=== PATIENT | female | born 1985 | race African-American/Black ===

== ENCOUNTER 2022-10-09 21:45 | Emergency (ER) | payer MEDICARE, MEDICAID, SELFPAY ==
--- NOTE | ~2022-10-09 | XR_ITS ---
EXAMINATION: XR ABDOMEN KUB CLINICAL INDICATION: Abdominal pain COMPARISON: None available. TECHNIQUE: 2 views of the abdomen. FINDINGS: The bowel gas pattern is normal with no evidence of ileus or obstruction. Stool present throughout the colon, without colonic dilatation. No unusual soft tissue calcifications are noted. The bones are unremarkable. XR/XR KUB IMPRESSION: * Mild/moderate constipation. * No evidence of obstruction.
[2022-10-09 21:47] VITALS: BP 124/68; PULSE 93; RESP 20; TEMP 36.8; O2SAT 99; BMI 25.0
[2022-10-09 22:03] LABS: MANUAL DIFF FLAG NO
[2022-10-09 22:06] LABS: Basophils Percent Auto 0.1 % (0-2); Eosinophils Absolute Auto 0.3 X10*3/uL (0.0-0.4); Eosinophils Percent Auto 3.7 % (0-4); Hematocrit 36.3 % (37.0-47.0); Imm Gran Abs Auto 0.01 X10*3/uL (0.00-0.03); Imm Gran Pct Auto 0.1 % (0.0-0.4); Lymphocytes Absolute Auto 2.3 X10*3/uL (1.2-4.9); Lymphocytes Percent Auto 26.5 % (20-40); Mean Corpuscular HGB Conc 35.8 g/dl (31.0-35.0); Mean Corpuscular Hemoglobin 28.6 pg (27.0-33.0); Mean Corpuscular Volume 79.8 fL (80.0-98.0); Mean Platelet Volume 10.2 fL (9.4-12.3); Monocytes Absolute Auto 1.3 X10*3/uL (0.1-1.2); Neutrophils Absolute Auto 4.7 x10*3/uL (2.0-8.3); Neutrophils Percent Auto 54.6 % (45-73); Platelet Count 346 X10*3/uL (160-400); Red Blood Count 4.55 X10*6/uL (4.20-5.50); Red Cell Distribution Width 12.8 % (11.0-16.0); White Blood Count 8.7 X10*3/uL (4.8-10.8)
[2022-10-09 22:21] LABS: Alanine Aminotransferase 9 U/L (0-31); Alkaline Phosphatase 88 U/L (39-117); Anion Gap 12 (12-20); Aspartate Amino Transferase 22 U/L (5-31); Bilirubin Direct 0.2 mg/dL (0.0-0.5); Bilirubin Total 0.8 mg/dL (0.0-1.0); Blood Urea Nitrogen 11 mg/dL (9-16); Calcium 8.6 mg/dL (8.4-10.2); Carbon Dioxide 27 mmol/L (22-29); Chloride 104 mmol/L (96-108); Creatinine Clr Calc Pharmacy 89.9; Estimated Glomerular Filt Rate > 60; Glucose Random 91 mg/dL (60-115); Lipase 25 U/L (8-78); Sodium 139 mmol/L (135-145); Total Protein 6.3 g/dL (6.5-8.0)
[2022-10-10 00:15] LABS: HCG Quantitative < 2 mIU/mL
[2022-10-10 00:33] LABS: C Reactive Protein 6.16 mg/dL (< or = 0.50)
[2022-10-10 00:42] LABS: Appearance Urine Clear; Color Urine Yellow; Glucose Urine UA Negative (Negative); Leukocyte Esterase Urine Negative (Negative); Nitrite Urine Negative (Negative); PH 5.5 (5.0-9.0); Specific Gravity - Urine 1.015 (1.005-1.025); Urine Blood Negative (Negative); Urine Ketones Trace mg/dL (Negative); Urine Protein Negative (Neg-Trace)
[2022-10-10 00:52] LABS: Erythrocyte Sedimentation Rate 3 MM/HR (0-20)
--- NOTE | 2022-10-10 00:53 | ED.ABDPAIN ---
HPI - Abdominal Pain General Chief Complaint: Abdominal Pain Stated Complaint: severe abd. pain, vomiting w/ blood, diarrhea Time Seen by Provider: 10/09/22 23:22 Source: patient Mode of arrival: ambulatory History of Present Illness HPI narrative: 37-year-old female presents with significant abdominal pain that has been going on for years, on and off. Patient has been seen several times at [facility] for the same symptoms and states that the episode of pain is more severe, constant has gone on for about 3 days this current event. Related Data Allergies Allergy/AdvReac Type Severity Reaction Status Date / Time amoxicillin Allergy Hives Verified 10/09/22 21:52 cephalexin [From Keflex] Allergy Hives Verified 10/09/22 21:52 metronidazole [From Flagyl] Allergy Hives Verified 10/09/22 21:52 Review of Systems Review of Systems Pertinent positives and negatives as stated in HPI PMFSH Past Medical History Source: nursing notes reviewed Social History Social History Alcohol intake: never Smoked in Last 30 Days: No Use of substances other than those prescribed or required for medical reasons: No Advance Directives: No Advance Directives Information Provided: Yes Patient : No Physical Exam ED Vital Signs: Vital Signs - 24 hr 10/09/22 21:47 Temperature 98.3 F Pulse Rate 93 Respiratory Rate 20 Blood Pressure 124/68 Pulse Oximetry 99 Oxygen Delivery Method Room Air BMI result Body Mass Index 25.0 VITAL SIGNS: Reviewed. GENERAL: Well developed, well nourished, in no acute distress. HEAD: Normocephalic/atraumatic EYES: PERRLA, EOMI EARS: Ext canals without abnormality OROPHARYNX: no oral lesions noted, posterior pharynx clear LUNGS: Normal breath sounds. No adventitious sounds or accessory muscle use. SpO2<99> CARDIOVASCULAR: Regular rate and rhythm without noted murmurs ABDOMEN: Soft, non-tender, non-distended with bowel sounds. MUSCULOSKELETAL: No tenderness, deformities, or effusions noted on gross inspection. EXTREMITIES: No cyanosis, clubbing or edema. SKIN: Inspection of the skin reveals no rashes, ulcerations, jaundice, pallor, or petechiae. NEUROLOGIC: Alert and oriented x 4. Strength and sensation to light touch were grossly intact x 4. Medical Decision Making Medical Decision Making MDM Narrative: 37-year-old female with history and clinical presentation of intermittent significant abdominal discomfort this been going on for years, she denies any follow-up with Gastroenterology and has been evaluated several times at [facility] and I will not be repeating CT scans at this time but will proceed with KUB as review of all other laboratory investigations appear to be chronically stable with the exception that the CRP is elevated with a normal ESR. Will provide patient with Bentyl as well as a Gastroenterology referral. I discussed all results with the patient at bedside to include the fact that significant amount of constipation was noted on her abdominal x-ray. She is otherwise discharged home in stable condition. Differential Diagnosis Please see the discussion above Lab Data Please see the discussion above 10/09/22 21:59 10/09/22 21:59 Labs: Lab Results 10/09/22 10/09/22 10/09/22 Range/Units 21:59 21:59 21:59 WBC 8.7 (4.8-10.8) X10*3/uL RBC 4.55 (4.20-5.50) X10*6/uL Hgb 13.0 (12.0-16.0) g/dl Hct 36.3 L (37.0-47.0) % MCV 79.8 L (80.0-98.0) fL MCH 28.6 (27.0-33.0) pg MCHC 35.8 H (31.0-35.0) g/dl RDW 12.8 (11.0-16.0) % Plt Count 346 (160-400) X10*3/uL MPV 10.2 (9.4-12.3) fL Immature Gran % (Auto) 0.1 (0.0-0.4) % Neut % (Auto) 54.6 (45-73) % Lymph % (Auto) 26.5 (20-40) % [place] % (Auto) 15.0 H (2-11) % Eos % (Auto) 3.7 (0-4) % Baso % (Auto) 0.1 (0-2) % Lymph # (Auto) 2.3 (1.2-4.9) X10*3/uL [place] # (Auto) 1.3 H (0.1-1.2) X10*3/uL Eos # (Auto) 0.3 (0.0-0.4) X10*3/uL Baso # (Auto) 0.0 (0.0-0.2) X10*3/uL Abs Immat Gran (auto) 0.01 (0.00-0.03) X10*3/uL Absolute Neuts (auto) 4.7 (2.0-8.3) x10*3/uL Absolute Nucleated RBC 0.000 (0.0-0.012) X10*3/uL Nucleated RBC % (auto) 0.0 (0.0-0.2) /100WBC ESR 3 (0-20) MM/HR Sodium 139 (135-145) mmol/L Potassium 4.0 (3.3-5.1) mmol/L Chloride 104 (96-108) mmol/L Carbon Dioxide 27 (22-29) mmol/L Anion Gap 12 (12-20) BUN 11 (9-16) mg/dL Creatinine 0.77 (0.5-1.4) mg/dL Estim Creat Clear Calc 89.9 Estimated GFR > 60 Random Glucose 91 (60-115) mg/dL Calcium 8.6 (8.4-10.2) mg/dL Total Bilirubin 0.8 (0.0-1.0) mg/dL Direct Bilirubin 0.2 (0.0-0.5) mg/dL AST 22 (5-31) U/L ALT 9 (0-31) U/L Alkaline Phosphatase 88 (39-117) U/L C-Reactive Protein 6.16 H (< or = 0.50) mg/dL Total Protein 6.3 L (6.5-8.0) g/dL Albumin 4.0 (3.5-5.0) g/dL Lipase 25 (8-78) U/L Beta HCG, Quant < 2 mIU/mL Urine Color Urine Appearance Urine pH (5.0-9.0) Ur Specific [place] (1.005-1.025) Urine Protein (Neg-Trace) mg/dL Urine Glucose (UA) (Negative) mg/dL Urine Ketones (Negative) mg/dL Urine Blood (Negative) Urine Nitrite (Negative) Ur Leukocyte Esterase (Negative) 10/10/22 Range/Units 00:35 WBC (4.8-10.8) X10*3/uL RBC (4.20-5.50) X10*6/uL Hgb (12.0-16.0) g/dl Hct (37.0-47.0) % MCV (80.0-98.0) fL MCH (27.0-33.0) pg MCHC (31.0-35.0) g/dl RDW (11.0-16.0) % Plt Count (160-400) X10*3/uL MPV (9.4-12.3) fL Immature Gran % (Auto) (0.0-0.4) % Neut % (Auto) (45-73) % Lymph % (Auto) (20-40) % [place] % (Auto) (2-11) % Eos % (Auto) (0-4) % Baso % (Auto) (0-2) % Lymph # (Auto) (1.2-4.9) X10*3/uL [place] # (Auto) (0.1-1.2) X10*3/uL Eos # (Auto) (0.0-0.4) X10*3/uL Baso # (Auto) (0.0-0.2) X10*3/uL Abs Immat Gran (auto) (0.00-0.03) X10*3/uL Absolute Neuts (auto) (2.0-8.3) x10*3/uL Absolute Nucleated RBC (0.0-0.012) X10*3/uL Nucleated RBC % (auto) (0.0-0.2) /100WBC ESR (0-20) MM/HR Sodium (135-145) mmol/L Potassium (3.3-5.1) mmol/L Chloride (96-108) mmol/L Carbon Dioxide (22-29) mmol/L Anion Gap (12-20) BUN (9-16) mg/dL Creatinine (0.5-1.4) mg/dL Estim Creat Clear Calc Estimated GFR Random Glucose (60-115) mg/dL Calcium (8.4-10.2) mg/dL Total Bilirubin (0.0-1.0) mg/dL Direct Bilirubin (0.0-0.5) mg/dL AST (5-31) U/L ALT (0-31) U/L Alkaline Phosphatase (39-117) U/L C-Reactive Protein (< or = 0.50) mg/dL Total Protein (6.5-8.0) g/dL Albumin (3.5-5.0) g/dL Lipase (8-78) U/L Beta HCG, Quant mIU/mL Urine Color Yellow Urine Appearance Clear Urine pH 5.5 (5.0-9.0) Ur Specific [place] 1.015 (1.005-1.025) Urine Protein Negative (Neg-Trace) mg/dL Urine Glucose (UA) Negative (Negative) mg/dL Urine Ketones Trace (Negative) mg/dL Urine Blood Negative (Negative) Urine Nitrite Negative (Negative) Ur Leukocyte Esterase Negative (Negative) Radiology Impression Radiologist Impression: My interpretation is in agreement with radiology's impression of the imaging studies. Medications Administered Discontinued Medications Generic Name Dose Route Start Last Admin Trade Name Freq PRN Reason Stop Dose Admin Al Hydroxide/Mg Hydroxide 30 ml 10/10/22 01:04 10/10/22 01:22 Magnesium Hydrox/Alum Hydrox 30 Ml Oral.Susp PO 10/10/22 01:05 30 ml ONCE ONE Administration Dicyclomine HCl 10 mg 10/10/22 01:04 10/10/22 01:19 Dicyclomine Hcl 10 Mg Capsule PO 10/10/22 01:05 10 mg ONCE ONE Administration Lidocaine HCl 10 ml 10/10/22 01:04 10/10/22 01:21 Lidocaine Hcl Viscous 2 % 15 Ml Solution MUCOUS MEM 10/10/22 01:05 10 ml ONCE ONE Administration Discharge Plan Discharge Clinical Impression: Abdominal pain, Constipation Patient Disposition: Home, Self-Care Instructions: Constipation (ED), High Fiber Diet (ED), Abdominal Pain (ED), Fleet Enema (ED) Additional Instructions: 1. Resume all home medications as prescribed. 2. I recommend increasing amount of water intake and utilize [id number] Tylenol/ibuprofen as needed for pain control to include heating pad for additional symptom relief. 3. You have stated that you have Bentyl and MiraLax at home, I recommend starting the MiraLax daily to help with your constipation. 4. I have provided you with a referral to follow-up with gastroenterology below. 5. Please follow-up with your primary care provider as you have scheduled. Return to the ER for any worsening symptoms. Referrals: Irena Kimball MD [Physician] - (37F with intermittent abd pain, CRP is elevated , no fevers, CT/US/XR from [facility] without acute findings) Interventions: ED Discharge Assessment Last Done: 10/10/22 02:21 Discharge Date/Time: 10/10/22 02:30
--- NOTE | 2022-10-10 00:59 | PC.NURSE ---
Pt A&Ox4, reports 8/10 intermittent wave, sharp, stabbing, burning up inside pain . Reports last BM was yesterday normal for self but had one episode of diarrhea, reports pain depends on position with nausea. + bowel sounds x 4, ABD slightly tender to LUQ. Pt ambulatory with steady gait to BR. Urine sample collected and sent to lab.
[2022-10-10] MEDS: Dicyclomine HCl 10 MG CAPSULE PO (01:19)
[2022-10-10] MEDS: Lidocaine HCl Viscous 2 % 15 ML SOLUTION 10 ML MUCOUS MEM (01:21)
[2022-10-10] MEDS: Magnesium Hydrox/Alum Hydrox 30 ML ORAL.SUSP PO (01:22)
== END 2022-10-10 02:30 | disposition home or self-care (01) ==
PROVIDERS: Emergency Provider Student in an Organized Health Care Education/Training Program
DX: K59.00 Constipation, unspecified (principal); R10.32 Left lower quadrant pain
CPT/HCPCS: 36415; 74018; 80048; 80076; 81003; 83690; 84702; 85025; 85652; 86140; 99283; 99284

== ENCOUNTER 2025-05-31 00:48 | Emergency (ER) | payer MEDICARE, SELFPAY ==
--- NOTE | ~2025-05-31 | CT_ITS ---
CLINICAL HISTORY: seizure like activity CT head without contrast Comparison: None provided Findings: There is no acute intracranial hemorrhage. Ventricles are of normal size and shape. No mass effect or midline shift is present. The vasquez-white matter differentiation appears normal. The visualized portions of the orbits, paranasal sinuses, and mastoids are unremarkable. No fractures are identified. IMPRESSION: Normal noncontrast head CT. This document has been electronically signed by: Javi Gordon MD on 05/31/2025 02:59:36
--- NOTE | ~2025-05-31 | CT_ITS ---
CLINICAL HISTORY: abdominal pain CT abdomen and pelvis with contrast Comparison: CR/SR - XR ABDOMEN 1 VIEW (KUB) - 10/10/22 01:19 EDT Findings: The lung bases are clear. The liver, gallbladder, pancreas, adrenal glands, and kidneys are unremarkable. There is borderline splenomegaly. The appendix is normal. The remainder of the gastrointestinal tract is unremarkable. There is trace free fluid in the cul-de-sac. The uterus and adnexa are unremarkable. The bladder is unremarkable. There are no enlarged lymph nodes. The aorta and IVC are normal. There is a mildly expansile lytic lesion within the right 8th rib which was present on the prior abdominal radiograph consistent with benignity. There is no acute fracture or suspicious lytic or sclerotic lesion. There is mild to moderate L1-2 degenerative disc disease. IMPRESSION: No acute abnormality in the abdomen or pelvis. This document has been electronically signed by: Javi Gordon MD on 05/31/2025 02:59:31
[2025-05-31 00:50] VITALS: BP 135/77; PULSE 86; RESP 16; TEMP 37.7; O2SAT 100; BMI 24.8
[2025-05-31 00:54] LABS: Glucose, Whole Blood 102 mg/dL (60-115)
--- NOTE | 2025-05-31 00:55 | ECG_ITS ---
Test Reason : AMS Blood Pressure : */* mmHG Vent. Rate : 64 BPM Atrial Rate : 64 BPM P-R Int : 158 ms QRS Dur : 104 ms QT Int : 376 ms P-R-T Axes : 61 96 54 degrees QTcB Int : 387 ms Normal sinus rhythm with sinus arrhythmia Rightward axis Incomplete right bundle branch block Borderline ECG No previous ECGs available Referred By: Nisha Fernando Electronically Signed By: Prasanna Negron
[2025-05-31] MEDS: Lactated Ringers 1,000 ML 999 ML IV (01:01)
[2025-05-31 01:05] LABS: Hematocrit 36.5 % (37.0-47.0); Hemoglobin 13.1 g/dl (12.0-16.0); Imm Gran Abs Auto 0.01 X10*3/uL (0.00-0.03); Imm Gran Pct Auto 0.1 % (0.0-0.4); Lymphocytes Absolute Auto 1.0 X10*3/uL (1.2-4.9); MANUAL DIFF FLAG NO; Mean Corpuscular HGB Conc 35.9 g/dl (31.0-35.0); Mean Corpuscular Hemoglobin 28.6 pg (27.0-33.0); Mean Corpuscular Volume 79.7 fL (80.0-98.0); NRBC Abs Auto 0.000 X10*3/uL (0.0-0.012); NRBC Pct Auto 0.0 /100WBC (0.0-0.2); Platelet Count 267 X10*3/uL (160-400); Red Blood Count 4.58 X10*6/uL (4.20-5.50); White Blood Count 8.4 X10*3/uL (4.8-10.8)
--- NOTE | 2025-05-31 01:06 | ED.GENADULT ---
HPI - General Adult General Chief complaint: General Medical Stated complaint: vomiting Time Seen by Provider: 05/31/25 00:49 Source: patient Mode of arrival: ambulatory Limitations: no limitations History of Present Illness ED Provider: Dr. Fernando [facility] narrative: 40-year-old female presented hospital today for evaluation of seizure-like activity. Patient stated that she had multiple seizures. She has no history of seizures in the past. Patient stated that she see lights flashing in her bodies. Patient feels liquid dripping down her chest and anterior abdomen. She feels light shining behind her eyes. Patient stated that she is passing in and out of consciousness. Patient appears to be extremely restless. Unable to provide any other meaningful history at this time. I did discuss with patient's mother. Who stated that she has been a strange with the patient she is unsure of exactly what is going on as well. Related Data Allergies Allergy/AdvReac Type Severity Reaction Status Date / Time amoxicillin (AMOXICILLIN) Allergy Intermediate RASH Verified 05/31/25 00:54 cephalexin (From Keflex) Allergy Hives Verified 05/31/25 00:54 metronidazole (From Flagyl) Allergy Hives Verified 05/31/25 00:54 From KEFLEX Allergy Intermediate RASH Uncoded 05/31/25 00:54 Review of Systems Review of Systems: Pertinent review of systems as mentioned in HPI. All other system otherwise negative. [facility] Past Medical History [facility] Narrative: None Social History Social History (System 04/27/23 @ 16:23 by Otilia Perea) Alcohol intake: never Advance Directives: No Advance Directives Information Provided: Yes Physical Exam ED Exam Exam: General: Appears extremely anxious, pale Head: Normacephalic, atraumatic ENT: oral mucosa dry, neck supple, no tracheal deviation Cardiovascular: regular rate, regular rhythm, no murmurs, rubbing, gallops Respiratory: CTAB, no wheeze, rales, rhonchi Gastrointestinal: Soft, diffuse abdominal tenderness Neurological: Awake and alert, no facial droop noted, sensation intact moving all 4 extremity, pupils PERRLA, EOMI no focal neurological deficit Skin: Warm and dry Psychiatric: Appropriate mood and thoughts Vital Signs: Vital Signs - 24 hr 05/31/25 00:50 05/31/25 03:01 Temperature 99.9 F Pulse Rate 86 74 Respiratory Rate 16 18 Blood Pressure 135/77 124/75 Pulse Oximetry 100 98 Oxygen Delivery Method Room Air Room Air BMI result Body Mass Index 24.8 Medications Administered Discontinued Medications Generic Name Dose Route Start Last Admin Trade Name Juliocesar PRN Reason Stop Dose Admin Diazepam 5 mg 05/31/25 02:49 05/31/25 02:55 Diazepam 10 Mg/2 Ml Cartridge IVPUSH 05/31/25 02:50 5 mg STAT STA Administration Haloperidol Lactate 5 mg 05/31/25 01:19 05/31/25 01:27 Haloperidol Lactate 5 Mg/Ml Vial IM 05/31/25 01:20 Not Given ONCE ONE Lactated Ringer's 1,000 mls @ 999 mls/hr 05/31/25 01:00 05/31/25 02:20 Lr IV 05/31/25 02:00 Infused .Q1H1M BURTON Infusion Iohexol 85 ml 05/31/25 02:20 05/31/25 02:21 Iohexol 350 Mg/Ml 100 Ml Infus..Btl IV 05/31/25 02:21 85 ml ONCE ONE Administration Metoclopramide HCl 5 mg 05/31/25 01:19 05/31/25 01:27 Metoclopramide Hcl 10 Mg/2 Ml Vial IV 05/31/25 01:20 Not Given ONCE ONE Ondansetron HCl 4 mg 05/31/25 00:49 05/31/25 01:01 Ondansetron Hcl 4 Mg/2 Ml Vial IVPUSH 05/31/25 00:50 4 mg ONCE ONE Administration Medical Decision Making Medical Decision Making MDM Narrative: 40-year-old female presented hospital today for seizure-like activities and multitude of symptoms. On examination the patient appears to be extremely anxious. She is able to move all 4 extremities. Sensation does appear to be intact on exam. Visual acuity appears to be intact. Patient does appear to have pilorection on forearms. She does appear to be pale. IV fluid be initiated. IV Zofran will be given to the patient. I did offer giving her some IM Haldol for her anxiety and nausea. Patient is refusing. Patient stated that she knows this is antipsychotic. She states she is not crazy. I did explain to her this is more for her nausea and her anxiety at this time. Patient is adamantly refusing this is medicine at this time. We will hold off at this time. Screening lab work will be obtained for the patient including lactic acid to see if there is signs of epileptic seizure. UA will be obtained to assess for any signs of UTI pyelonephritis. We will also plan to obtain a CT head CT abdomen and pelvis. Patient is tender to in her abdomen. Patient is not tachycardic not febrile blood pressure is stable at this time. Patient will be signed out to oncoming provider pending her lab work and CT imaging. I received sign-out from my colleague Dr. 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 Patient denies history of anxiety depression although she has been crying the whole time and had a panic attack Patient isn't SI or HI, section 12 is not indicated at this time. Patient declined Care team consult to help with the anxiety. Patient requesting to be discharged, patient's mother is here to pick her up Differential Diagnosis Differential Diagnoses: The differential diagnosis associated with the presentation includes Anxiety, panic attack, pyelonephritis, dehydration, seizure-like activity, nonepileptic seizure Lab Data MDM Lab Attestation statement: I reviewed the patient's lab results. 05/31/25 00:58 05/31/25 00:58 Labs: Lab Results 05/31/25 05/31/25 05/31/25 Range/Units 00:50 00:58 00:59 WBC 8.4 (4.8-10.8) X10*3/uL RBC 4.58 (4.20-5.50) X10*6/uL Hgb 13.1 (12.0-16.0) g/dl Hct 36.5 L (37.0-47.0) % MCV 79.7 L (80.0-98.0) fL MCH 28.6 (27.0-33.0) pg MCHC 35.9 H (31.0-35.0) g/dl RDW 13.1 (11.0-16.0) % Plt Count 267 (160-400) X10*3/uL MPV 10.6 (9.4-12.3) fL Immature Gran % (Auto) 0.1 (0.0-0.4) % Neut % (Auto) 77.5 H (45-73) % Lymph % (Auto) 11.6 L (20-40) % [place] % (Auto) 10.0 (2-11) % Eos % (Auto) 0.2 (0-4) % Baso % (Auto) 0.6 (0-2) % Lymph # (Auto) 1.0 L (1.2-4.9) X10*3/uL [place] # (Auto) 0.8 (0.1-1.2) X10*3/uL Eos # (Auto) 0.0 (0.0-0.4) X10*3/uL Baso # (Auto) 0.1 (0.0-0.2) X10*3/uL Abs Immat Gran (auto) 0.01 (0.00-0.03) X10*3/uL Absolute Neuts (auto) 6.5 (2.0-8.3) x10*3/uL Absolute Nucleated RBC 0.000 (0.0-0.012) X10*3/uL Nucleated RBC % (auto) 0.0 (0.0-0.2) /100WBC Sodium 137 (135-145) mmol/L Potassium 3.3 (3.3-5.1) mmol/L Chloride 104 (96-108) mmol/L Carbon Dioxide 22 (22-29) mmol/L Anion Gap 14 (12-20) BUN 9 (9-16) mg/dL Creatinine 0.83 (0.5-1.4) mg/dL Estim Creat Clear Calc 84.3 Estimated GFR > 60 POC Glucose 102 (60-115) mg/dL Random Glucose 105 (60-115) mg/dL Lactic Acid 1.3 (0.5-2.0) mmol/L Calcium 9.1 (8.4-10.2) mg/dL Magnesium 2.0 (1.6-2.6) mg/dL Total Bilirubin 0.3 (0.0-1.0) mg/dL AST 38 H (5-31) U/L ALT 15 (0-31) U/L Alkaline Phosphatase 91 (39-117) U/L Total Creatine Kinase 57 (26-140) U/L Total Protein 7.4 (6.5-8.0) g/dL Albumin 4.4 (3.5-5.0) g/dL Lipase 12 (8-78) U/L Salicylates (15-30) mg/dL Acetaminophen (<30) mcg/mL Ethyl Alcohol < 10 mg/dL 05/31/25 Range/Units 01:19 WBC (4.8-10.8) X10*3/uL RBC (4.20-5.50) X10*6/uL Hgb (12.0-16.0) g/dl Hct (37.0-47.0) % MCV (80.0-98.0) fL MCH (27.0-33.0) pg MCHC (31.0-35.0) g/dl RDW (11.0-16.0) % Plt Count (160-400) X10*3/uL MPV (9.4-12.3) fL Immature Gran % (Auto) (0.0-0.4) % Neut % (Auto) (45-73) % Lymph % (Auto) (20-40) % [place] % (Auto) (2-11) % Eos % (Auto) (0-4) % Baso % (Auto) (0-2) % Lymph # (Auto) (1.2-4.9) X10*3/uL [place] # (Auto) (0.1-1.2) X10*3/uL Eos # (Auto) (0.0-0.4) X10*3/uL Baso # (Auto) (0.0-0.2) X10*3/uL Abs Immat Gran (auto) (0.00-0.03) X10*3/uL Absolute Neuts (auto) (2.0-8.3) x10*3/uL Absolute Nucleated RBC (0.0-0.012) X10*3/uL Nucleated RBC % (auto) (0.0-0.2) /100WBC Sodium (135-145) mmol/L Potassium (3.3-5.1) mmol/L Chloride (96-108) mmol/L Carbon Dioxide (22-29) mmol/L Anion Gap (12-20) BUN (9-16) mg/dL Creatinine (0.5-1.4) mg/dL Estim Creat Clear Calc Estimated GFR POC Glucose (60-115) mg/dL Random Glucose (60-115) mg/dL Lactic Acid (0.5-2.0) mmol/L Calcium (8.4-10.2) mg/dL Magnesium (1.6-2.6) mg/dL Total Bilirubin (0.0-1.0) mg/dL AST (5-31) U/L ALT (0-31) U/L Alkaline Phosphatase (39-117) U/L Total Creatine Kinase (26-140) U/L Total Protein (6.5-8.0) g/dL Albumin (3.5-5.0) g/dL Lipase (8-78) U/L Salicylates < 5.0 L (15-30) mg/dL Acetaminophen 5 (<30) mcg/mL Ethyl Alcohol mg/dL Critical Care Time Critical Care Time Critical Care Time: Yes Total Critical Care Time: 45 Attestation: I have personally provided critical care time. Time includes review of lab data, radiology results, discussion with consultants, and monitoring for potential decompensation. Intervention performed as documented. Discharge Plan Discharge Clinical Impression: Nausea & vomiting, Psychogenic nonepileptic seizure Patient Disposition: Home, Self-Care Instructions: Nonepileptic Seizures (ED), Acute Nausea and Vomiting (ED) Additional Instructions: Please follow-up with your primary care physician tomorrow. If you have any worsening or new symptoms, please return to the emergency room or call 911 Print Language: Estonian
--- NOTE | 2025-05-31 01:27 | PC.NURSE ---
pt declined medications. zofran and LR administered.
[2025-05-31 01:28] LABS: Alanine Aminotransferase 15 U/L (0-31); Albumin Level 4.4 g/dL (3.5-5.0); Alkaline Phosphatase 91 U/L (39-117); Anion Gap 14 (12-20); Aspartate Amino Transferase 38 U/L (5-31); Blood Urea Nitrogen 9 mg/dL (9-16); Calcium 9.1 mg/dL (8.4-10.2); Carbon Dioxide 22 mmol/L (22-29); Chloride 104 mmol/L (96-108); Creatinine Clr Calc Pharmacy 84.3; Estimated Glomerular Filt Rate > 60; Lipase 12 U/L (8-78); Magnesium 2.0 mg/dL (1.6-2.6); Potassium 3.3 mmol/L (3.3-5.1); Sodium 137 mmol/L (135-145); Total Protein 7.4 g/dL (6.5-8.0)
--- OUTSIDE RECORDS SUMMARY | 2025-05-31 01:41 | XMS_ITS | Clinical Summary ---
Author Organization [facility] Address [address] [place] [id number] Phone Care Team Providers Care Engineering Project Manager Name Role Phone Mariela Jacobs MD Primary Care Pr ovider Allergies Active Allergy Reactions Criticality Noted Date Comments Amoxicillin Rash Low 02/10/2023 Amoxicillin-Pot Clavulanate Rash,Pain Low 02/11/20 23 Stomach Pain Cephalexin Rash,Pain Low 02/10/2023 Stomach pain and cramps Medications pantoprazole (PROTONIX) 40 MG tablet Take 1 tablet by mouth 2 (two) times a day. 12/31/2022 Active butalbital-aceta minophen-caffein e (FIORICET, ESGIC) 50-325-40 mg per tablet Take 1 tablet by mouth every 4 (four) hours as needed. 02/06/2023 Active MAGNESIUM ORAL Take 400 mg by mouth daily. Active norethindrone (MICRONOR) 0.35 mg tablet Take 1 tablet by mouth daily. Active clonazePAM (KLONOPIN) 0.5 MG tablet Take 0.5 mg by mouth as needed. Active pregabalin (LYRICA) 100 MG capsule Take 100 mg by mouth 3 (three) times a day. Active traMADoL (ULTRAM) 50 mg tablet Take 50 mg by mouth 2 (two) times a day as needed. Active dicyclomine (BENTYL) 10 MG capsule Take 10 mg by mouth 4 (four) times a day before meals and nightly. Active ondansetron (ZOFRAN) 4 MG tablet Take 4 mg by mouth every 12 (twelve) hours as needed. 01/29/2023 Active butalbital-aceta minophen-caffein e (FIORICET, ESGIC) 50-325-40 mg per tablet Take 1 tablet by mouth every 4 (four) hours as needed. 11/05/2021 Active Active Problems Problem Noted Date Diagnosed Date Fibromyalgia 04/16/2023 Assessment & Plan (04/16/2023 9:31 AM EDT): She has a long history of diffuse myofascial pain, initially diagnosed by neurology in 2012. She also has coexisting psychiatric conditions as well as anxiety, depression and a history of PTSD. She does not currently have a psychiatrist. We talked about the usual triggers for her fibromyalgia and the need for her to establish care with a psychiatrist. I sent her for some baseline labs today to evaluate for inflammation as well as rheumatoid arthritis. She does not appear to have an inflammatory arthritis. She can continue with Lyrica and tramadol. I defer to her primary care provider regarding adjusting the dose of Lyrica and/or tramadol. Rheumatology no longer manages long-term fibromyalgia, and patient should follow-up with her primary care provider. Rheumatology follow-up not needed. Family History Medical History Relation Comments ADD / ADHD Brother Diabetes Maternal Grandfather Diabetes Mother gestational diab etes only Diabetes Paternal Grandmother Crohn's disease Sister Relation Status Comments Brother Maternal Grandfather Mother Paternal Grandmother Sister Social History Tobacco Use Types Packs/Day Years Used Date Smoking Tobacco: Former Cigarettes Smokeless Tobacco: Never Tobacco Cessation:Counseling Given: Not Answered Alcohol Use Standard Drinks/Week Comments Not Currently 0 (1 standard drink = 0.6 oz pur e alcohol) Education Answer Date Recorded Are you interested in more education? Not on macho e 01/28/2023 Are you concerned about learning? Not on file 01/28/2023 No 01/28/2023 No 01/28/2023 Digital Access Answer Date Recorded No 01/28/2023 No 01/28/2023 Reliable internet access at home? Not on file 01/28/2023 Device with a working camera? Not on file Comments Unknown Sex and Gender Information Value Date Recorded Sex Assigned at Not on file Legal Sex Female 8:58 AM EDT Gender Identity Not on file Sexual Orientation Not on file Last Filed Vital Signs Vital Sign Reading Time Taken Comments Blood Pressure 110/78 04/15/2023 3:21 PM EDT Pulse 113 04/15/2023 3:21 PM EDT Temperature - - Respiratory Rate - - Oxygen Saturation 98% 04/15/2023 3:21 PM EDT Inhaled Oxygen Concentration - - Weight 62.6 kg (138 lb) 04/15/2023 3:21 PM EDT Height 165.1 cm (5' 5 ) 04/15/2023 3:21 PM EDT Body Mass Index 22.96 04/15/2023 3:21 PM EDT Plan of Treatment Health Maintenance Due Date Last Done Comments DEPRESSION SCREENING 1997 SMOKING Hx and SMOKELESS TOBACCO SCREENING 1998 HEPATITIS C SCREENING 2003 HIV ONE-TIME SCREENING (18-65 YEARS) 2003 PAP SMEAR 2006 INFLUENZA VACCINE (#1) 2025 0, 05/03/2009, 04/02/2008, Additional history exists MAMMOGRAM 2025 COVID-19 VACCINE ( season) 2025 Adult Td,Tdap Booster 09/05/2031 09/04/2021 , 04/30/2008, 03/22/1998 HEPATITIS A VACCINES Aged Out No long er eligible based on patient's age to complete this topic HIB VACCINES Aged Out No longer eligi ble based on patient's age to complete this topic MENINGOCOCCAL VACCINES (ACWY) Aged Out No longer eligible based on patient's age to complete this topic MENINGOCOCCAL VACCINES (B) Aged Out N o longer eligible based on patient's age to complete this topic PNEUMOCOCCAL VACCINES (0-49 years) Aged Out No longer eligible based on patient's age to complete this topic Medical Devices Not on file Insurance MEDICARE PART A & B [facility] ONE CARE MEDICARE REPLACEMENT ABDIRAHMAN MATTHEW [id number] MEDICARE PART A & B [facility] ONE CARE MEDICARE REPLACEMENT MEDICARE PART A & B Member Subscriber Plan / Payer (Ef fective 2010-Present) Name:Anastasia Franco Member ID:[id number] Relation to Subscriber:Self Name:Anastasia Franco Subscriber ID:[id number] Payer ID:[id number] Group ID:Not on file Type:Medicare Address: [employer] [address] [place] [id number] [place] [address] ONE CARE MEDICARE REPLACEMENT MEDICARE PART A & B [facility] ONE CARE MEDICARE REPLACEMENT ABDIRAHMAN MATTHEW [id number] MEDICARE PART A & B [facility] MEDICARE REPLACEMENT ABDIRAHMAN MATTHEW [id number] MEDICARE PART A & B [facility] ONE CARE MEDICARE REPLACEMENT ABDIRAHMAN MATTHEW [id number] Care Teams Engineering Project Manager Relationship Specialty Start Date End Date Mariela Jacobs MD PCP - General Family Medicine 01/20/23 Additional Source Comments The information contained in this document represents components of the legal health record. It is not the complete legal health record.[facility]
--- OUTSIDE RECORDS SUMMARY | 2025-05-31 01:41 | XMS_ITS | Clinical Summary ---
Author Organization [address] Address [address] [place] [address] Phone Care Team Providers Care Softball Player Name Role Phone Mariela Jacobs MD Primary Care Pr ovider Allergies Active Allergy Reactions Criticality Noted Date Comments Amoxicillin-Pot Clavulanate Rash Low 07/25/19 10 Rash, stomach pains Cephalexin Monohydrate Rash Medium 04/20/2008 Face and chest rash, bad stomach pain and stomach cramps Medications bisacodyL (DULCOLAX) 5 mg EC tablet Take 1 tablet (5 mg total) by mouth 2 (two) times a day. For bowel movements 4 Active dicyclomine (BENTYL) 10 mg capsule Take 1 capsule (10 mg total) by mouth 4 (four) times a day (before meals and nightly). Active docusate sodium (COLACE) 100 mg capsule Take 1 capsule (100 mg total) by mouth 2 (two) times a day. 4 Active magnesium oxide 200 mg magnesium tablet Take 2 tablets by mouth 1 (one) time each day. 4 Active omeprazole (PriLOSEC) [address] capsule Take 1 capsule (40 mg total) by mouth 1 (one) time each day. Take in am on empty stomach, wait 30 mins and then eat to activate the medication 4 Active simethicone (MYLICON) 125 mg chewable tablet Chew 1 tablet (125 mg total) every 6 (six) hours if needed for flatulence. 4 Active butalbital-acet aminophen-caffe ine (FIORICET, ESGIC) 50-325-40 mg per tablet Take 1 tablet by mouth every 4 (four) hours if needed (for Pain.). Active clonazePAM (KlonoPIN) 0.5 mg tablet Take 1 tablet (0.5 mg total) by mouth at bedtime as needed for anxiety. Active ondansetron (ZOFRAN) 4 mg tablet Take 1 tablet (4 mg total) by mouth every 12 (twelve) hours if needed for nausea. 20 tablet 2 5 Active pregabalin (Lyrica) 150 mg capsuleIndicati ons:Fibromyalgi a Take 1 capsule (150 mg total) by mouth 3 (three) times a day. Max Daily Amount: 450 mg 270 each 5 07/05/19 26 Active Active Problems Problem Noted Date Diagnosed Date Mixed hyperlipidemia 10/09/2024 Assessment & Plan (10/09/2024 1:52 PM EDT): Will update fasting labs. Orders: Lipid panel with reflex to direct LDL; Future Comprehensive metabolic panel; Future Hemoglobin A1c; Future Lumbar radiculopathy 10/09/2024 Assessment & Plan (10/09/2024 1:52 PM EDT): Referred to physiatry. MRI of the lumbar spine is as above Orders: Ambulatory referral to Physical Medicine Rehab; Future Bipolar 2 disorder ([facility] V24, [facility] V28) Overview (05/23/2024): diagnosed by last psychiatris/therapist 05/07/21 - pt tells me today that this is a mis-diagnosis. Not currently under psychiatry/behavioral health care. Assessment & Plan (10/09/2024 1:52 PM EDT): She was provided with the contact information for Mihaela THACKERP-BC, RUBA JARRELL, BINDERY MACHINE OPERATOR of [facility] who is a therapist/psychiatrist SENIOR MANAGING DIRECTOR to establish care. Functional abdominal pain syndrome 10/20/2022 Lumbar degenerative disc disease 03/20/2022 Overview (05/23/2024): Last Assessment & Plan: Ms. Yadira Farooq has severe upper low back pain with radiation to the right hip. She has abdominal pain that she feels like is also associated with this problem. She took some information on acupuncture and also excepted a prescription for physical therapy. Talked about nonsteroidal anti-inflammatory medication as well as reasonable pharmacologic treatment. She will follow-up in our office approximately 6 weeks after she has been through some therapy. Assessment & Plan (10/09/2024 1:52 PM EDT): Referred to physiatry. MRI of the lumbar spine is as above She is advised that it is difficult to address she is advised that it is difficult to address musculoskeletal issues via telehealth appropriately. Advised to make an in person appointment to address this further Orders: Ambulatory referral to Physical Medicine Rehab; Future Mid back pain 03/20/2022 Overview (05/23/2024): Last Assessment & Plan: Ms. Starr describes severe mid back pain that radiates out along the chest wall and ribs. She says it makes it nearly impossible to take a deep breath. It contributes to it makes her anxiety worse. Like to get an MRI of the thoracic spine to evaluate for any disc or osteophyte that might be causing thoracic radiculopathy. Intervertebral disc disease 03/12/2022 Migraine 11/04/2021 Overview (05/23/2024): Referred to at [facility] [place]: Appt 10/22/21 at 1:30pm Group B Streptococcus jeannette r, +RV culture, currently 11/03/2021 Overview (05/23/2024): 10/30/21 +GBS (allergies to Keflex and Augmentin) Susceptibility Beta streptococcus group b Not Specified Ampicillin Susceptible Clindamycin Resistant Erythromycin Resistant PENICILLIN Susceptible Vancomycin Susceptible AMA (advanced maternal age) multigravida 35+, first trimester 05/07/2021 Overview (05/23/2024): Referral for NIPT if desired - Panorama pending Level 2 US (>35) Weekly BPP at 36 weeks Delivery at 39 weeks >/= 35 yo 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 Assessment & Plan (10/09/2024 1:52 PM EDT): Will update CBC Orders: CBC and differential; Future PTSD (post-traumatic stress disorder) 05/01/2021 Assessment & Plan (10/09/2024 1:52 PM EDT): She was provided with the contact information for Mihaela Verduzco PMHNP-BC, AGNP- BC, BINDERY MACHINE OPERATOR of [facility] who is a therapist/psychiatrist SENIOR MANAGING DIRECTOR to establish care. Fibromyalgia 03/03/2011 Overview (05/23/2024): Used to be on Lyrica but no longer established with Neurology Assessment & Plan (10/09/2024 1:52 PM EDT): Will trial increased dose of Lyrica to 150 mg 3 times daily Orders: pregabalin (Lyrica) 150 mg capsule; Take 1 capsule (150 mg total) by mouth 3 (three) times a day. Max Daily Amount: 450 mg Teratogen exposure in , antepartum 10/2008 Overview (05/23/2024): Exposure to Klonipin, level 2 sono Allergic rhinitis 11/16/2007 Disorder of sacrum 09/30/2007 Overview (05/23/2024): IMO update Adjustment disorder with depressed mood 12/15/19 07 Overview (05/23/2024): sees dr joanna jorge who dispenses her meds, she is at [facility] therapist is kalli stuart 05/07/2021 - pt is not currently established with any Behavioral Health/Psychiatry provider (pt was discharged from [facility] for multiple no shows). States she is looking for a new provider. Currently self weaning of Clonazepam 0.5mg taking anywhere from 2-3 times a day (prescribed 4 times daily). Also weaning off Gabapentin as well - has 1 pill left as no one to prescribe for her. (per [facility] notes (this was not disclosed by pt): last Rx they gave with taper on 04/15/21 Clonazepam 0.5mg TID x 1 week then 0.5mg BID x 1 week, then 0.5mg daily then she is to stop. Gabapentin 400mg was 1 cap BID x 10 days then 1 cap daily x 10 days then stop. They and ER will not provide any further refills). She reports today that she feels safe. No thoughts hurting self/others, no SI, no auditory or visual hallucinations. Partner Jeevan is extremely supportive of her. 09/18/21. Pt and partner report that patient is only in therapy, Has not yet establish care with a psychiatrist yet (states [facility] has her on waiting list still). Encouraged them to call [facility] back to see if they can get established with a Psychiatrist provider sooner. Immunizations Immunization Administration Dates Next Due DTP 07/21/1989, 7,1985,1984,1985 H1N1 Inj Preservative Free 05/03/2009 Hepatitis B Pediatric (Enger ix B; Recombivax HB) to less than 20 yo 03/22/1998,02/23/1997,01/23/1997 Influenza trivalent, 0.5mL, preservative free (Fluarix; FluLaval; Fluzone) ages 6mo and older (Afluria) 3 years and older 07/09/2009,04/02/2008,05/05/2006 MMR, measles mumps and rubel la Live (Priorix; M-M-R II) 12mo and older 01/23/1997 OPV 07/21/1989, 7,1985,1984,1985 PPD Test 04/18/2009,04/30/2008 Td Tetanus diptheria (Tdvax) 7yo and older 03/22/1998 Tdap Tetanus diptheria acell ular pertussis (Boostrix; Adacel) 7yo and older 09/04/2021,04/30/2008 Surgical History Surgery Date Site/Laterality Comments OTHER SURGICAL HISTORY PROCEDURE: DENIES PREVIOUS SURGERY WISDOM TOOTH EXTRACTION PROCEDURE: HISTORICAL WISDOM TEETH EXTRACTION; COMMENT: all 4 Medical History Medical History Date Comments Headache(784.0) 02/22/2006 DX:Headache(784. 0); COMMENT: sometimes can feel them coming (blurry spot) other times sharp sudden pain Adjustment disorder with dep ressed mood 12/14/2006 DX:Adjustment disorder with depressed mood; COMMENT: sees dr joanna jorge who dispenses her meds, she is at [facility] therapist is kalli stuart Bipolar 2 disorder ([facility] V24, [facility] V28) DX:Bipolar 2 disorder (HCC); COMMENT: diagnosed by last psychiatris/therapist - Pt reports this was a misdiagnosis Anxiety state, unspecified DX:An xiety state, unspecified PTSD (post-traumatic stress disorder) DX:PTSD (post-traumatic stress disorder) Fibromyalgia DX:Fibromyalgia; COMMENT: Dx by neurologist - was on lyrica, soma, and another med. 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 Pt was cutting self at that time Epigastric pain DX:Epigastric pa in Chronic abdominal pain DX:Chroni c abdominal pain Functional dyspepsia DX:Function al dyspepsia History of bacterial enteritis D X:History of bacterial enteritis Nausea DX:Nausea Family History Medical History Relation Name Comments ADD / ADHD Brother 1 No Known Problems Brother 2 ?ADHD Other: bladder issue Brother 3 Other: food allergies Brother 4 No Known Problems Brother 5 No Known Problems Brother 6 No Known Problems Daughter No Known Problems Father Diabetes Maternal Grandfather Other: heart issues Maternal Grandfather stent placed Other: heart issues Maternal Grandmother Other: osteoarthritis Maternal Grandmother Diabetes Mother gestational therese betes only Other: anxiety Mother Other: ?pancreas or stomach cancer Mother's side MGGM No Known Problems Paternal Grandfather Diabetes Paternal Grandmother Crohn's disease Sister 1 Dx in her te ens No Known Problems Sister 2 No Known Problems Son 1 No Known Problems Son 2 Diabetes Uncle on insulin Blindness Neg Hx Breast cancer Neg Hx Cataracts Neg Hx Cervical cancer Neg Hx Colon cancer Neg Hx Glaucoma Neg Hx Macular degeneration Neg Hx Ovarian cancer Neg Hx Pancreatic cancer Neg Hx Prostate cancer Neg Hx Uterine cancer Neg Hx Relation Name Status Comments Brother 1 Alive Brother 2 Alive Brother 3 Alive Brother 4 Alive Brother 5 Alive half brother - share dad Brother 6 Alive half brother - share dad Daughter Alive Father Alive Maternal Grandfather Maternal Grandmother Alive Mother Alive Mother's side Alive Paternal Grandfather Paternal Grandmother Alive Sister 1 Alive Sister 2 Alive half sister - s hares dad Son 1 Alive Son 2 Alive Uncle Alive maternal uncle Social History Tobacco Use Types Packs/Day Years Used Date Smoking Tobacco: Former Smokeless Tobacco: Former Quit: 07/05/2012 Alcohol Use Standard Drinks/Week Comments Not Currently 1 (1 standard drink = 0.6 oz pur e alcohol) Comments Unknown Sex and Gender Information Value Date Recorded Sex Assigned at Female 09/28/2024 6:14 PM EDT Legal Sex Female 6:11 PM EST Gender Identity Female 09/28/2024 6:14 PM EDT Sexual Orientation Choose not to disclose 2024 6:14 PM EDT Obstetrics History Last Filed Vital Signs Vital Sign Reading Time Taken Comments Blood Pressure 100/60 09/09/2023 11:27 AM EST Pulse 74 09/09/2023 11:27 AM EST Temperature - - Respiratory Rate - - Oxygen Saturation - - Inhaled Oxygen Concentration - - Weight 67.1 kg (148 lb) 09/09/2023 11:27 AM EST Height 165.1 cm (5' 5 ) 09/09/2023 11:27 AM EST Body Mass Index 24.63 09/09/2023 11:27 AM EST Plan of Treatment Upcoming Encounters Date Type Department Care Team (Late st Contact Info) Description 06/13/2025 8:00 AM EST Office Visit Adult Medicine [facility] [address] [place] [address] Mariela Jacobs MD [address] [place], [place] Health Maintenance Due Date Last Done Comments Breast Cancer Screening 1985 HPV Vaccines (1 - 3-dose SCDM series) 02/10/2012 Medicare Annual Wellness Visit 06/14/2022 Social Influencers of Health Screening 06/14/2022 COVID-19 Vaccine ( season) 2025 Influenza Vaccine (#1) 2025 0, 05/03/2009, 04/02/2008, Additional history exists Cervical Cancer Screening: HPV 05/13/2026 05/13/2021 Cholesterol Screening (Lipid Panel) 10/21/2027 10/20/2022 DTaP,Tdap,and Td Vaccines (9 - Td or Tdap) 09/05/2031 09/04/2021, 04/30/2008, 03/22/1998, Additional history exists RSV Immunization Adult Patients (1 - 1-dose 75+ series) 02/10/2060 IPV Vaccines Completed 07/21/1989, 12/1986, 1985, Additional history exists MMR Vaccines Completed 01/23/1997 Hepatitis B Vaccines Completed 03/22/1998, 02/23/1997, 01/23/1997 HIV Screening Completed 05/09/2021 Hepatitis C Screening Completed 05/09/2021 Depression Screening Completed 10/09/2024 HIB Vaccines Aged Out No longer eligi ble based on patient's age to complete this topic Hepatitis A Vaccines Aged Out No long er eligible based on patient's age to complete this topic Meningococcal ACWY Vaccine Aged Out N o longer eligible based on patient's age to complete this topic Meningococcal B Vaccine Aged Out No l onger eligible based on patient's age to complete this topic Pneumococcal Vaccine: Pediatrics (0 to 5 Years) and At-Risk Patients (6 to 49 Years) Discontinued RSV Immunization Patients Under 20 months Aged Out No longer eligible based on patient's age to complete this topic Varicella Vaccines Aged Out No longer eligible based on patient's age to complete this topic Procedures Procedure Name Priority Date/Time Associated Diagnosis Comments LIPID PANEL Routine 10/20/2022 HPV Routine 05/13/2021 HEPATITIS C SCREENING Routine 05/09/2021 HIV SCREENING Routine 05/09/2021 from Last 3 Months or Most Recently Relevant to Health Maintenance Results * (ABNORMAL) Lipid panel (10/20/2022) [facility] LDL/HDL Ratio 4 0 - 4 Triglycerides 90 >=0 mg/dL Cholesterol 238(A) 0 - 200 mg/dL HDL 58 >=40 mg/dL LDL Cholesterol 162(A) 0 - 100 mg/dL Blood Venous blood specimen / Unknown [facility] Provider LAB BLOOD ORDERABLES Sammie l Result * Cervical Cancer Screening: HPV (05/13/2021) Pathologist [facility] Cervical Cancer Screening: HPV negative, abstracted [facility] Provider HEALTH MAINTENANCE Final Result * HIV Screening (05/09/2021) [facility] HIV Screening abstracted [facility] Provider HEALTH MAINTENANCE Final Result * Hepatitis C Screening (05/09/2021) [facility] Hepatitis C Screening abstracted [facility] Provider HEALTH MAINTENANCE Final Result from Last 3 Months or Most Recently Relevant to Health Maintenance Insurance MEDICARE Care Teams Softball Player Relationship Specialty Start Date End Date Mariela Jacobs MD [address] [place] [address] PCP - General Internal Medicine 03/10/22
[2025-05-31] MEDS: iohexoL 350 MG/ML 100 ML INFUS..BTL 85 ML IV (02:21)
[2025-05-31 02:43] LABS: Acetaminophen LAB 5 mcg/mL (<30); Salicylate < 5.0 mg/dL (15-30)
[2025-05-31] MEDS: diazePAM 10 MG/2 ML CARTRIDGE 5 MG IVPUSH (02:55)
[2025-05-31 03:01] VITALS: BP 124/75; PULSE 74; RESP 18; O2SAT 98
[2025-05-31 04:06] VITALS: BP 124/75; PULSE 74; RESP 18; TEMP 36.6; O2SAT 98
== END 2025-05-31 04:09 | disposition home or self-care (01) ==
PROVIDERS: Student in an Organized Health Care Education/Training Program; Emergency Provider Emergency Medicine
DX: R56.9 Unspecified convulsions (principal); R11.2 Nausea with vomiting, unspecified; Z88.0 Allergy status to penicillin; Z88.1 Allergy status to other antibiotic agents
CPT/HCPCS: 36415; 70450; 74177; 80053; 80143; 80179; 80307; 82550; 82947; 83605; 83690; 83735; 85025; 93005; 96361; 96374; 96375; 99284; 99285; J2405; J3360; J7120; Q9967

== ENCOUNTER → 2025-05-31 00:55 | Outpatient (BNV) | payer MEDICARE, SELFPAY | PROVIDERS: Emergency Provider Emergency Medicine; Visit Provider Internal Medicine Cardiovascular Disease | DX: I45.10 Unspecified right bundle-branch block (principal) | CPT/HCPCS: 93010 ==

== ENCOUNTER → 2025-05-31 01:21 | Outpatient (BNV) | payer MEDICARE, SELFPAY | PROVIDERS: Emergency Provider Emergency Medicine; Visit Provider Radiology Diagnostic Radiology | DX: R10.9 Unspecified abdominal pain (principal); R56.9 Unspecified convulsions | CPT/HCPCS: 70450; 74177 ==

== ENCOUNTER 2025-06-30 16:26 | Emergency (ER) | payer MEDICARE, MEDICAID, SELFPAY ==
--- NOTE | ~2025-06-30 | XR_ITS ---
CLINICAL HISTORY: cp 2 view chest x-ray Comparison: None provided Findings: The lungs are clear. Normal size heart. No acute fracture. IMPRESSION: 1. No acute findings. This document has been electronically signed by: Little Batista MD on 06/30/2025 18:36:09
[2025-06-30 16:29] VITALS: BP 99/68; PULSE 81; O2SAT 100
[2025-06-30 16:36] VITALS: BP 106/72; PULSE 90; RESP 18; TEMP 36.4; O2SAT 96
[2025-06-30 16:49] VITALS: BMI 21.9
[2025-06-30 16:55] VITALS: BP 106/76; PULSE 90; RESP 18; TEMP 36.4; O2SAT 96; BMI 21.9
--- NOTE | 2025-06-30 17:13 | ED_ITS ---
HPI - General Adult General Chief complaint: General Medical Stated complaint: CP, SOB, Sinus tach, HTN, aniexty out of clonipin Time Seen by Provider: 06/30/25 17:13 Source: patient Mode of arrival: ambulatory Limitations: no limitations History of Present Illness ED Provider: Dr. Fernando HPI narrative: 40-year-old female presented hospital today for chest pain and palpitation has been going on for weeks now. The patient stated that she has been anxious as well. The patient stated that this palpitation intermittent in nature. Related Data Allergies Allergy/AdvReac Type Severity Reaction Status Date / Time amoxicillin (AMOXICILLIN) Allergy Intermediate RASH Verified 06/30/25 16:55 cephalexin (From Keflex) Allergy Hives Verified 06/30/25 16:55 metronidazole (From Flagyl) Allergy Hives Verified 06/30/25 16:55 From KEFLEX Allergy Intermediate RASH Uncoded 06/30/25 16:55 Review of Systems 2 Review of Systems: Pertinent review of systems as mentioned in HPI. All other system otherwise negative. [facility] Past Medical History [facility] Narrative: Anxiety Social History Social History (System 04/27/23 @ 16:23 by Otilia Perea) Alcohol intake: never Smoked in Last 30 Days: No Use of substances other than those prescribed or required for medical reasons: No Advance Directives: No Advance Directives Information Provided: No Do you have a plan to hurt others: No Plan Physical Exam ED Exam Exam: General: Pleasant, no distress, interacting appropriately Head: Normacephalic, atraumatic ENT: oral mucosa dry, neck supple, no tracheal deviation Cardiovascular: regular rate, regular rhythm, no murmurs, rubbing, gallops Respiratory: CTAB, no wheeze, rales, rhonchi Gastrointestinal: Soft, non distended, non tender, non guarding Extremities: No limb pain or swelling, no calf tenderness Neurological: Awake and alert, no facial droop noted Skin: Warm and dry Psychiatric: Appropriate mood and thoughts Vital Signs: Vital Signs - 24 hr 06/30/25 16:36 06/30/25 16:55 06/30/25 20:14 Temperature 97.6 F 97.6 F 98.1 F Pulse Rate 90 90 58 Respiratory Rate 18 18 14 Blood Pressure 106/72 106/76 116/67 Pulse Oximetry 96 96 96 Oxygen Delivery Method Room Air Room Air Room Air BMI result Body Mass Index 21.9 Medications Administered Discontinued Medications Generic Name Dose Route Start Last Admin Trade Name Juliocesar PRN Reason Stop Dose Admin Hydroxyzine HCl 25 mg 06/30/25 17:31 06/30/25 18:20 Hydroxyzine Hcl 25 Mg Tablet PO 06/30/25 17:32 25 mg ONCE ONE Administration Lactated Ringer's 1,000 mls @ 999 mls/hr 06/30/25 17:30 06/30/25 19:15 Lr IV 06/30/25 18:30 Infused .Q1H1M [facility] Infusion Ketorolac Tromethamine 15 mg 06/30/25 17:30 06/30/25 18:22 Ketorolac Tromethamine 15 Mg/Ml Vial IVPUSH 06/30/25 17:31 Not Given ONCE ONE Ondansetron HCl 4 mg 06/30/25 17:30 06/30/25 18:22 Ondansetron Hcl 4 Mg/2 Ml Vial IVPUSH 06/30/25 17:31 Not Given ONCE ONE Medical Decision Making Medical Decision Making [facility] Narrative: 40-year-old female presented hospital today for intermittent chest pain tachycardia. EKG troponin basic lab work will be obtained chest x-ray will be obtained for the patient as well. We will plan to give patient some Toradol IV and IV fluid. IV Zofran will be given to the patient as well. Patient's chest x-ray is unremarkable, patient has refused Toradol and IV Zofran. Patient CBC is unremarkable, chemistries unremarkable, troponin is negative, influenza, RSV and COVID swab was negative. Discussed the results with the patient. I recommend follow up with her primary care doctor for further evaluation of the tachycardia. The patient is resting comfortably does not appear to be in acute distress at this time. She is stable Differential Diagnosis Differential Diagnoses: The differential diagnosis associated with the presentation includes Chest pain, PE, ACS, pneumonia Lab Data [facility] Lab Attestation statement: I reviewed the patient's lab results. 06/30/25 17:45 06/30/25 17:45 Labs: Lab Results 06/30/25 Range/Units 17:45 WBC 9.2 (4.8-10.8) X10*3/uL RBC 4.42 (4.20-5.50) X10*6/uL Hgb 12.8 (12.0-16.0) g/dl Hct 35.9 L (37.0-47.0) % MCV 81.2 (80.0-98.0) fL MCH 29.0 (27.0-33.0) pg MCHC 35.7 H (31.0-35.0) g/dl RDW 13.2 (11.0-16.0) % Plt Count 307 (160-400) X10*3/uL MPV 10.1 (9.4-12.3) fL Immature Gran % (Auto) 0.3 (0.0-0.4) % Neut % (Auto) 77.6 H (45-73) % Lymph % (Auto) 13.8 L (20-40) % Harrison % (Auto) 6.5 (2-11) % Eos % (Auto) 1.0 (0-4) % Baso % (Auto) 0.8 (0-2) % Lymph # (Auto) 1.3 (1.2-4.9) X10*3/uL Harrison # (Auto) 0.6 (0.1-1.2) X10*3/uL Eos # (Auto) 0.1 (0.0-0.4) X10*3/uL Baso # (Auto) 0.1 (0.0-0.2) X10*3/uL Abs Immat Gran (auto) 0.03 (0.00-0.03) X10*3/uL Absolute Neuts (auto) 7.1 (2.0-8.3) x10*3/uL Absolute Nucleated RBC 0.000 (0.0-0.012) X10*3/uL Nucleated RBC % (auto) 0.0 (0.0-0.2) /100WBC Sodium 138 (135-145) mmol/L Potassium 4.0 D (3.3-5.1) mmol/L Chloride 107 (96-108) mmol/L Carbon Dioxide 26 (22-29) mmol/L Anion Gap 9 L (12-20) BUN 5 L (9-16) mg/dL Creatinine 0.65 (0.5-1.4) mg/dL Estim Creat Clear Calc 107.7 Estimated GFR > 60 Random Glucose 103 (60-115) mg/dL Calcium 8.7 (8.4-10.2) mg/dL Troponin I High Sens < 2.7 (<3.5-17.0) ng/L Influenza Type A (PCR) NEGATIVE (Negative) Influenza Type B (PCR) NEGATIVE (Negative) RSV RNA Qual (PCR) NEGATIVE (Negative) SARS-CoV-2 RNA (RT-PCR) NEGATIVE (Negative) Independent Interpretation I performed an independent interpretation of an: EKG and Plain X-Ray Radiology Impression Discussion of test interpretation with radiology: I have reviewed the radiologist's reading. Discharge Plan Discharge Clinical Impression: Palpitation Patient Disposition: Home, Self-Care Instructions: Heart Palpitations (ED) Additional Instructions: Follow up with your primary care doctor and ask about a HOLTER MONITOR. This may help detect any intermittent cardiac arrythmia. Print Language: Gabonese
--- OUTSIDE RECORDS SUMMARY | 2025-06-30 17:18 | XMS_ITS | Clinical Summary ---
Author Organization [address] Address [address] [place] [address] Phone Care Team Providers Care Linux System Admin Name Role Phone Mariela Jacobs MD Primary [...] Physical Medicine Rehab; Future Bipolar 2 disorder 05/23/2024 Overview (05/23/2024): diagnosed by last psychiatris/therapist 05/07/21 - pt tells me today that this is a mis-diagnosis. Not currently under psychiatry/behavioral health care. Assessment & Plan (10/09/2024 1:52 PM EDT): She was provided with the contact information for Mihaela Verduzco PMHNP-BC, AGNP- BC, [employer]PERATING [employer]ENTICE of [facility] who is a therapist/psychiatrist GILL TENDER to establish care. Functional abdominal pain syndrome [...] (05/23/2024): Referred to at [facility] [place]: Appt 10/22/21 at 1:30pm Group B Streptococcus jeannette r, +RV culture, currently 11/03/2021 Overview (05/23/2024): 4/28/22 +GBS (allergies to Keflex and Augmentin) Susceptibility Beta streptococcus group b Not Specified Ampicillin Susceptible Clindamycin Resistant Erythromycin Resistant PENICILLIN Susceptible Vancomycin Susceptible AMA (advanced maternal age) multigravida 35+, first trimester 05/07/2021 Overview (05/23/2024): Referral for NIPT if desired - Panorama pending Level 2 US (>35) Weekly BPP at 36 weeks Delivery at 39 weeks >/= 35 yo 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 Assessment & Plan (10/09/2024 1:52 PM EDT): Will update CBC Orders: CBC and differential; Future PTSD (post-traumatic stress disorder) 05/01/2021 Assessment & Plan (10/09/2024 1:52 PM EDT): She was provided with the contact information for Mihaela Verduzco PMHNP-BC, AGNP- BC, [facility] of [facility] who is a therapist/psychiatrist GILL TENDER to establish care. Fibromyalgia 03/03/2011 Overview (05/23/2024): [...] who dispenses her meds, she is at [facility] therapist is kalli stuart 05/07/2021 - pt is not currently established with any Behavioral Health/Psychiatry provider (pt was discharged from [facility] for multiple no shows). States she is looking for a new provider. Currently self weaning of Clonazepam 0.5mg taking anywhere from 2-3 times a day (prescribed 4 times daily). Also weaning off Gabapentin as well - has 1 pill left as no one to prescribe for her. (per [facility] notes (this was not disclosed by [...] establish care with a psychiatrist yet (states [facility] has her on waiting list still). Encouraged them to call [facility] back to see if they can get [...] who dispenses her meds, she is at [facility] therapist is kalli stuart Bipolar 2 disorder ([facility] V24, [facility] V28) DX:Bipolar 2 disorder (HCC); COMMENT: diagnosed by last psychiatris/therapist - Pt reports this was a misdiagnosis Anxiety state, unspecified DX:An xiety state, unspecified PTSD (post-traumatic stress disorder) DX:PTSD (post-traumatic stress disorder) Fibromyalgia DX:Fibromyalgia; COMMENT: Dx by neurologist - was on lyrica, soma, and another med. No longer under this provider care History of suicide attempt 2002 DX:Hi story of suicide attempt; COMMENT: OD Paxil Hemoglobin C trait ([facility] V24) 09/01/2012 DX:Hemoglobin C trait ([facility]) History of depression 2005 DX:History of depression; COMMENT: post depression x [...] not to disclose 2024 6:14 PM EDT Last Filed Vital Signs Vital Sign Reading [...] 09/09/2023 11:27 AM EST Plan of Treatment Health Maintenance Due Date Last Done Comments Breast Cancer Screening 1985 Drug Screen 1985 Non-Opioid Controlled Substance Agreement 1985 HPV Vaccines (1 - 3-dose SCDM series) 02/10/2012 Medicare Annual Wellness Visit 06/14/2022 Social Influencers of Health Screening 06/14/2022 COVID-19 Vaccine ( - 2024- season) 2025 Influenza Vaccine (#1) 2025 0, [...] Maintenance Results * (ABNORMAL) Lipid panel (10/20/2022) [facility] LDL/HDL Ratio 4 0 - 4 Triglycerides 90 >=0 mg/dL Cholesterol 238(A) 0 - 200 mg/dL HDL 58 >=40 mg/dL LDL Cholesterol 162(A) 0 - 100 mg/dL Blood Venous blood specimen / Unknown [facility] Provider LAB BLOOD ORDERABLES Sammie l Result * Cervical Cancer Screening: HPV (05/13/2021) [facility] Cervical Cancer Screening: HPV negative, abstracted [facility] Provider HEALTH MAINTENANCE Final Result * HIV Screening (05/09/2021) [facility] HIV Screening abstracted [facility] Provider HEALTH MAINTENANCE Final Result * Hepatitis C Screening (05/09/2021) [facility] Hepatitis C Screening abstracted [facility] Provider HEALTH MAINTENANCE Final Result from Last 3 Months or Most Recently Relevant to Health Maintenance Insurance MEDICARE Care Teams Linux System Admin Relationship Specialty Start Date End Date Mariela Jacobs MD [address] [place], [place] PCP - General Internal Medicine 03/10/22
--- OUTSIDE RECORDS SUMMARY | 2025-06-30 17:18 | XMS_ITS | Clinical Summary ---
Author Organization [facility] Address [address] [place] [id number] Phone Care Team Providers Care Patient'S Librarian Name Role Phone Mariela Jacobs MD Primary [...] file Insurance MEDICARE PART A & B [facility] ONE CARE MEDICARE REPLACEMENT ABDIRAHMAN MATTHEW [id number] MEDICARE PART A & B [facility] ONE CARE MEDICARE REPLACEMENT MEDICARE PART A & B Member Subscriber Plan / Payer (Ef fective 2010-Present) Name:Anastasia Franco Member ID:[id number] Relation to Subscriber:Self Name:Anastasia Franco Subscriber ID:[id number] Payer ID:[id number] Group ID:Not on file Type:Medicare Address: [employer] [address] [place] [id number] [place] [address] ONE CARE MEDICARE REPLACEMENT MEDICARE PART A & B [facility] ONE CARE MEDICARE REPLACEMENT ABDIRAHMAN MATTHEW [id number] MEDICARE PART A & B [facility] MEDICARE REPLACEMENT ABDIRAHMAN MATTHEW [id number] MEDICARE PART A & B [facility] ONE CARE MEDICARE REPLACEMENT ABDIRAHMAN MATTHEW [id number] Care Teams Patient'S Librarian Relationship Specialty Start Date End Date Mariela Jacobs MD PCP - General Family Medicine 01/20/23 Additional Source Comments The information contained in this document represents components of the legal health record. It is not the complete legal health record.[facility]
--- NOTE | 2025-06-30 17:29 | ECG_ITS ---
Test Reason : TACHY Blood Pressure : */* mmHG Vent. Rate : 65 BPM Atrial Rate : 65 BPM P-R Int : 164 ms QRS Dur : 94 ms QT Int : 394 ms P-R-T Axes : 69 94 53 degrees QTcB Int : 409 ms Normal sinus rhythm with sinus arrhythmia Rightward axis Borderline ECG When compared with ECG of 31-May-2025 00:59, No significant change was found Referred By: Nisha Fernando Electronically Signed By: JOHN ROMEO MD
[2025-06-30 17:55] LABS: MANUAL DIFF FLAG NO
[2025-06-30 17:56] LABS: Hematocrit 35.9 % (37.0-47.0); Hemoglobin 12.8 g/dl (12.0-16.0); Imm Gran Abs Auto 0.03 X10*3/uL (0.00-0.03); Imm Gran Pct Auto 0.3 % (0.0-0.4); Lymphocytes Absolute Auto 1.3 X10*3/uL (1.2-4.9); Mean Corpuscular HGB Conc 35.7 g/dl (31.0-35.0); Mean Corpuscular Hemoglobin 29.0 pg (27.0-33.0); Mean Corpuscular Volume 81.2 fL (80.0-98.0); NRBC Abs Auto 0.000 X10*3/uL (0.0-0.012); NRBC Pct Auto 0.0 /100WBC (0.0-0.2); Platelet Count 307 X10*3/uL (160-400); Red Blood Count 4.42 X10*6/uL (4.20-5.50); White Blood Count 9.2 X10*3/uL (4.8-10.8)
[2025-06-30 18:16] LABS: Anion Gap 9 (12-20); Blood Urea Nitrogen 5 mg/dL (9-16); Calcium 8.7 mg/dL (8.4-10.2); Carbon Dioxide 26 mmol/L (22-29); Chloride 107 mmol/L (96-108); Creatinine Clr Calc Pharmacy 107.7; Estimated Glomerular Filt Rate > 60; Potassium 4.0 mmol/L (3.3-5.1); Sodium 138 mmol/L (135-145); Troponin-I High Sensitivity < 2.7 ng/L (<3.5-17.0)
[2025-06-30] MEDS: Lactated Ringers 1,000 ML 999 ML IV (18:21)
[2025-06-30 18:33] LABS: Resp Syncy Virus RNA Qual PCR NEGATIVE (Negative); SARS COV2 PCR INHOUSE NEGATIVE (Negative)
[2025-06-30 20:14] VITALS: BP 116/67; PULSE 58; RESP 14; TEMP 36.7; O2SAT 96
[2025-06-30 21:22] VITALS: BP 116/67; PULSE 58; RESP 14; TEMP 36.7; O2SAT 96
== END 2025-06-30 22:29 | disposition home or self-care (01) ==
PROVIDERS: Emergency Provider Student in an Organized Health Care Education/Training Program
DX: R00.2 Palpitations (principal); R00.0 Tachycardia, unspecified; Z03.818 Encounter for observation for suspected exposure to other biological agents ruled out; R06.02 Shortness of breath; I10 Essential (primary) hypertension; F41.9 Anxiety disorder, unspecified
CPT/HCPCS: 71046; 80048; 84484; 85025; 87637; 93005; 96360; 99284; 99285; J7120

== ENCOUNTER → 2025-06-30 17:29 | Outpatient (BNV) | payer MEDICARE, MEDICAID, SELFPAY | PROVIDERS: Emergency Provider Student in an Organized Health Care Education/Training Program; Visit Provider Internal Medicine Cardiovascular Disease | DX: R00.0 Tachycardia, unspecified (principal) | CPT/HCPCS: 93010 ==

== ENCOUNTER → 2025-06-30 17:29 | Outpatient (BNV) | payer MEDICARE, MEDICAID, SELFPAY | PROVIDERS: Emergency Provider Student in an Organized Health Care Education/Training Program; Visit Provider Radiology Diagnostic Radiology | DX: R07.9 Chest pain, unspecified (principal) | CPT/HCPCS: 71046 ==